=== PATIENT | female | born 1965 | race Hispanic/Latino ===

== ENCOUNTER 2025-06-21 08:26 | Inpatient (IN) | payer BC ==
[~2025-06-21] VITALS: Ht 152.4 cm; Wt 30.4 kg
[2025-06-21] MEDS: 0.9%NACL 1000ML 1,000 ML IV ONE (08:59)
[2025-06-21 09:02] LABS: IMMATURE GRANULOCYTE ABSOLUTE 0.01 K/uL (0-1); NUCLEATED RED BLOOD CELLS 0.0 % (0.0-0.19); PLATELET COUNT (AUTO) 227 K/uL (130-400); RED BLOOD CELL COUNT(AUTO) 3.47 MIL/uL (4.00-5.50); RED CELL DISTRIBUTION WIDTH 17.2 % (11.0-15.5); WHITE BLOOD COUNT (AUTO) 3.0 K/uL (4.8-10.8)
--- NOTE | 2025-06-21 09:14 | ERN ---
General Chief Complaint: Multiple Complaints Stated Complaint: MULTIPLE COMPLAINTS Time Seen by MD: 08:35 Source: patient History of Present Illness Initial Comments Patient is a an 59-year-old female coming in complaining of generalized body weakness nauseousness and vomiting. Per patient this has been ongoing for a couple of days. She was diagnosed with cancer stage IV. Allergies: Coded Allergies: No Known Allergies (Unverified Allergy, Unknown, 06/21/25) Past Medical History Past Medical History: Cancer Past Surgical History: None ROS Dictation Patient is a 59-year-old female coming in complaining of nauseousness and Results Laboratory and Microbiology Lab and Micro Result Laboratory Tests Test 06/21/25 08:50 White Blood Count 3.0 K/uL (4.8-10.8) L Red Blood Count 3.47 MIL/uL (4.00-5.50) L Hemoglobin 11.2 g/dL (12.0-16.0) L Hematocrit 35.5 % (36-48) L Mean Corpuscular Volume 102.3 fL (79-99) H Mean Corpuscular Hemoglobin 32.3 pg (27.0-33.0) Mean Corpuscular Hemoglobin Concent 31.5 g/dL (32.0-36.0) L Red Cell Distribution Width 17.2 % (11.0-15.5) H Platelet Count 227 K/uL (130-400) Mean Platelet Volume 9.9 fL (7.5-10.5) Immature Granulocyte % (Auto) 0.3 % (0-1) Neutrophils (%) (Auto) 77.3 % (40.0-77.0) H Lymphocytes (%) (Auto) 15.5 % (21.0-51.0) L Monocytes (%) (Auto) 6.9 % (3.0-13.0) Eosinophils (%) (Auto) 0.0 % (0.0-8.0) Basophils (%) (Auto) 0.0 % (0.0-5.0) Neutrophils # (Auto) 2.3 K/uL (1.8-7.7) Lymphocytes # (Auto) 0.5 K/uL (1.0-4.8) L Monocytes # (Auto) 0.2 K/uL (0.1-1.0) Eosinophils # (Auto) 0.00 K/uL (0.00-0.70) Basophils # (Auto) 0.00 K/uL (0.00-0.20) Absolute Immature Granulocyte (auto 0.01 K/uL (0-1) Segmented Neutrophils % 82 % (40-70) H Band Neutrophils % 3 % (0-2) H Lymphocytes % (Manual) 12 % (22-44) L Monocytes % (Manual) 3 % (2-9) Nucleated Red Blood Cells 0.0 % (0.0-0.19) Differential Comment MANUAL DIFFERENTIAL White Cell Morphology Comment Platelet Morphology Comment ADEQUATE Red Blood Cell Morphology See comments Sodium Level 143 mmol/L (136-145) Potassium Level 3.9 mmol/L (3.5-5.1) Chloride Level 99 mmol/L (101-111) L Carbon Dioxide Level 30 mmol/L (21-32) Blood Urea Nitrogen 44 mg/dL (7-18) H Creatinine 0.9 mg/dL (0.5-1.0) Glomerular Filtration Rate Calc 74 mL/min (>90) Random Glucose 100 mg/dL (70-105) Total Calcium 9.7 mg/dL (8.5-10.1) Total Bilirubin 1.6 mg/dL (0.2-1.0) H Aspartate Amino Transf (AST/SGOT) 36 U/L (10-37) Alanine Aminotransferase (ALT/SGPT) 28 U/L (12-78) Alkaline Phosphatase 132 U/L (50-136) Total Creatine Kinase 46 U/L (21-232) Troponin I High Sensitivity 83 ng/L (4-50) *H Total Protein 6.2 g/dL (6.0-8.3) Albumin 2.3 g/dL (3.5-5.0) L Lipase 16 U/L (16-77) Labs Reviewed?: Yes EKG/XRAY/US/CT/MRI EKG Comment 06/21/2025 time 8:53 a.m. Ventricular rate 101 Sinus tachycardia [place] [address] wave elevation or depression MDM MDM: Differential diagnosis: ACS, GI bleed, Rationale: Tests considered and ordered secondary to shared decision making include: Previous outside records reviewed: Old ER visits. Risk of complication and/or morbidity or mortality of patient management: None Medications-Per medication reconciliation Need for hospitalization: Patient does not meet criteria for hospitalization. Need for emergency major/minor surgery: No There are no social concerns with this patient. Prescription drug management Prescriptions will include symptomatic care Patient's prior external medical records from other ER visits were reviewed by me as indicated. Prior testing and results from previous visits were reviewed. Prior tests were taken into account with medical decision making and resource utilization, independent historian/historians were used to obtain complete medical history. I independently interpreted the test that were performed, results were reviewed by me and considered findings on radiology if ordered. Medical management and examination interpretation discussions were had by me with other qualified healthcare professionals as indicated for the patient's care. ED Course Orders Procedure Category Date Status Time Cbc With Differential LAB 06/21/25 Complete 08:35 Comprehensive LAB 06/21/25 Complete Metabolic Panel 08:35 Troponin I High LAB 06/21/25 Complete Sensitivity 08:35 Urinalysis Profile LAB 06/21/25 In Process 08:35 Occult Blood Stool LAB 06/21/25 In Process Single Only 08:35 12 Lead Ekg Tracing- EKG 06/21/25 Logged Technical 08:35 0.9%Nacl 1000ml (Ns PHA 06/21/25 Complete 1000ml) 09:00 Ondansetron 4mg Inj PHA 06/21/25 Complete (Zofran 4mg Inj) 09:00 Pantoprazole 40mg Inj PHA 06/21/25 Complete (Protonix 40mg Inj 09:00 Creatine Kinase, Total LAB 06/21/25 Complete 08:35 Ct Abdomen/Pelvis W/O CT 06/21/25 Taken Contrast 08:35 Lipase LAB 06/21/25 Complete 08:35 Manual Differential LAB 06/21/25 Complete 08:50 Ondansetron 4mg Inj PHA 06/21/25 Complete (Zofran 4mg Inj) 10:00 Current Medications Medications (Trade) Dose Ordered Sig/Janice Route PRN Reason Start Time Stop Time Status Last Admin Dose Admin Ondansetron HCl (zoFRAN 4MG INJ) 4 mg ONCE ONCE IVP 06/21/25 09:00 06/21/25 09:01 DC 06/21/25 08:59 Ondansetron HCl (zoFRAN 4MG INJ) 4 mg ONCE ONCE IVP 06/21/25 10:00 06/21/25 10:01 DC 06/21/25 09:48 Pantoprazole Sodium (PROTonix 40MG INJ) 40 mg ONCE ONCE IVP 06/21/25 09:00 06/21/25 09:01 DC 06/21/25 08:59 Sodium Chloride 1,000 ml @ 0 mls/hr ONCE ONCE IV 06/21/25 09:00 06/21/25 09:01 DC 06/21/25 08:59 Vital Signs Date Time Temp Pulse Resp B/P (MAP) Pulse Ox O2 Delivery O2 Flow Rate FiO2 06/21/25 09:17 88 18 122/58 98 Room Air* 0 21 06/21/25 08:34 97.2 102 18 109/75 100 Room Air 0 Critical Care Note Comments Critical Care Procedure Note Authorized and Performed by: me Total critical care time: Approximately 36 minutes Due to a high probability of clinically significant, life threatening deterioration, the patient required my highest level of preparedness to intervene emergently and I personally spent this critical care time directly and personally managing the patient. This critical care time included obtaining a history; examining the patient; pulse oximetry; ordering and review of studies; arranging urgent treatment with development of a management plan; evaluation of patient's response to treatment; frequent reassessment; and, discussions with other providers. This critical care time was performed to assess and manage the high probability of imminent, life-threatening deterioration that could result in multi-organ failure. It was exclusive of separately billable procedures and treating other patients and teaching time. Please see MDM section and the rest of the note for further information on patient assessment and treatment. DX & DISP Disposition: Inpatient Decision to Admit Time: 10:35 Departure Impression: Primary Impression: ACS (acute coronary syndrome) Additional Impressions: GI bleed, Ovarian cancer Condition: Stable Referrals: SELF,REFERRAL (PCP) ALONDRA GREWAL MD Jun 21, 2025 09:14
[2025-06-21 10:07] LABS: BAND NEUTROPHILS % (MANUAL) 3 % (0-2); LYMPHOCYTES % (MANUAL) 12 % (22-44); MONOCYTES % (MANUAL) 3 % (2-9); SEGMENTED NEUTROPHILS % 82 % (40-70)
[2025-06-21 10:08] LABS: MAN.DIFF COMMENT-IMPRESSION MANUAL DIFFERENTIAL; PLATELET MORPHOLOGY COMMENT ADEQUATE
[2025-06-21 10:14] LABS: CREATININE 0.9 mg/dL (0.5-1.0); GLOMERULAR FILTR. RATE CALC 74.0 mL/min (>90); GLUCOSE,RANDOM 100.0 mg/dL (70-105); SODIUM SERUM 143.0 mmol/L (136-145); UREA NITROGEN, BLOOD 44.0 mg/dL (7-18)
[2025-06-21 10:18] LABS: ASPARTATE AMINOTRANSFERASE 36.0 U/L (10-37); CREATINE KINASE, TOTAL 46.0 U/L (21-232); TOTAL PROTEIN, SERUM 6.2 g/dL (6.0-8.3)
[2025-06-21 10:24] LABS: APPEARANCE,URINE CLOUDY (CLEAR); GLUCOSE, URINE (UA) NEGATIVE (NEGATIVE); LEUKOCYTE ESTERASE ,URINE 75 Leu/uL (NEGATIVE); NITRATE,URINE NEGATIVE (NEGATIVE); OCCULT BLOOD,URINE +- (TRACE) (NEGATIVE)
[2025-06-21 10:36] LABS: ADD UA MICROSCOPIC YES
[2025-06-21 10:40] LABS: CALCIUM OXALATE CRYSTALS,UR RARE /LPF (None Seen); NON-SQUAMOUS EPITHELIAL CELL 1 /HPF (0-2); OTHER CASTS, URINE 3 /LPF (None Seen); SQUAMOUS EPITHELIAL CELL,UR RARE /HPF (0-2)
--- NOTE | 2025-06-21 10:42 | HMCIMG ---
EXAM: CT Abdomen and Pelvis Without IV contrast CLINICAL HISTORY: ABD PAIN TECHNIQUE: Axial computed tomography images of the abdomen and pelvis without intravenous contrast. CONTRAST: No IV contrast. COMPARISON: None provided. FINDINGS: LUNG BASES: Large left and right moderate pleural effusion with associated passive atelectasis. Few tiny right oblique fissural nodules. LIVER: Hypodense lesion in segment II of the liver measuring 13 x 8 mm, which can be a simple cyst. USG correlation is suggested if indicated. GALLBLADDER AND BILE DUCTS: The gallbladder appears within normal limits. No radioopaque gallstones are seen. No biliary ductal dilatation is evident. PANCREAS: Unremarkable. SPLEEN: Unremarkable. ADRENAL GLANDS: Unremarkable. KIDNEYS, URETERS, AND BLADDER: The kidneys appear within normal limits. There is no hydronephrosis or hydroureter. No urinary calculi are seen. STOMACH AND BOWEL: Unremarkable appearance of the stomach and bowel. No evidence of bowel obstruction. No evidence suggesting enteritis or colitis. APPENDIX: No evidence of acute appendicitis on CT examination. PERITONEUM: Large volume ascites. No free air. Omental caking with a maximum thickness of 3 cm. LYMPH NODES: No lymphadenopathy is evident. REPRODUCTIVE: Heterogeneous lesions in bilateral adnexal regions measuring 3.7 x 3.4 cm on the left side and 3.4 x 3.3 cm on the right side. VASCULATURE: No evidence of abdominal aortic aneurysm. BONES AND SOFT TISSUE: No aggressive appearing osseous lesion. No acute osseous pathology evident. Eventration of left hemidiaphragm. IMPRESSION: Study limited without contrast. Large volume ascites with omental caking, suggesting peritoneal carcinomatosis. Bilateral adnexal masses, measuring up to 3.7 cm. Large left and moderate right pleural effusion with associated passive atelectasis. /[place]
--- NOTE | 2025-06-21 12:49 | EKG ---
[facility] Test Date: 2025-06-21 Test Time: 08:53:46 Pat Name: JUNI REID Department: EDH Room: 405 Gender: F Packing Checker: [id number] : [id number] Requested By: ALONDRA GREWAL Order Number: [id number] Reading MD: Mera Jackson Measurements Intervals [place] Rate: 101 P: 56 [place]: 147 QRS: 33 QRSD: 55 T: -58 QT: 334 QTc: 434 Interpretive Statements Sinus tachycardia Low voltage, extremity leads Nonspecific T abnormalities, lateral leads No previous ECG available for comparison Electronically Signed On 06-22-2025 12:36:12 CDT by Mera Jackson Please click the below link to view image of tracing.
[2025-06-21] MEDS ORDERED: MAGNESIUM 2GM PREMIX 50ML 50 ML IV PRN (13:00)
[2025-06-21] MEDS ORDERED: PoTASSium chloRIDE 20MEQ ER 20 MEQ ERTAB PO PRN (13:00)
[2025-06-21] MEDS ORDERED: GLUCAGON 1MG KIT 1 MG ML IM PRN (13:00)
[2025-06-21] MEDS ORDERED: DEXTROSE 50%-WATER 50 ML DISP.SYRIN IV PRN (13:00)
--- NOTE | 2025-06-21 13:23 | HP ---
[facility] HISTORY AND PHYSICAL Date of Service: Jun 21, 2025 Time of Service: 13:13 PCP:Dr Giang Admitting: Dr Giang, Allergies: No Allergy Information Available, No Known Drug Allergies HISTORY OF PRESENT ILLNESS: [ Patient is 59 years old female with a past medical history of per ovarian cancer stage IV, peritoneal carcinoma, ascites, pleural effusions on hospice from home who came to emergency department with a complaint of shortness of breaths [place], nausea, vomiting with some dark emesis. During evaluation patient's troponin has been elevated at 83. Occult blood was negative. No more nausea or vomiting. Nurse practitioner was able to talk to the patient and her at the bedside regarding the hospice continuation. As per patient and they understand that no scopes probably she will be able to survive so they would only like to proceed with shortness of breaths. CT abdomen/pelvis showed large ascites with omental caking peritoneal carcinoma, bilateral adrenal masses and large to moderate left pleural effusion. We will consult IR for paracentesis and thoracentesis and possibly placement of the pigtail since patient would like to go home tomorrow after the fluid removal. They denied to consult any consultants like GI for dark emesis or oncologist Dr. Samson outpatient for cancer since they know they not going to proceed with anything and they are not candidate for any treatment. Patient's urine was positive for leukocytosis we ordered urine culture and place patient on Rocephin 2 g daily. Most recent vital signs temperature 97.2 pulse 84 respiration 18 blood pressure 128/82 patient is on room air satting 97%. WBC 3.0 hemoglobin 11.2 hematocrit 35.5 platelets 227 UA positive for leukocytosis. Stool occult negative. Sodium 143 potassium 3.9 CO2 30 BUN 44 creatinine 0.9 GFR 74 glucose 100 bilirubin 1.6 AST 36 ALT 28 troponin 83 albumin 2.3 lipase 16. Patient will be admitted under hospitalist care for further evaluation/recommendation. The plan is IR paracentesis and thoracentesis with possible PEG tube placement and then discharged home with hospice. Case management was consulted to pelvis with disposition. REVIEW OF SYSTEMS CONSTITUTIONAL: Denies fevers, chills, or night sweats. No unintentional weight loss reported. NEUROLOGICAL: Denies headache, amaurosis fugax, motor weakness, sensory d eficit, vertigo/spinning sensation, gait abnormalities, or tremors. ENT: No hearing loss, otalgia, otorrhea, rhinitis, rhinorrhea, hoarseness, or sore throat. CARDIOVASCULAR: Denies any exertional angina, dyspnea on exertion, orthopnea, paroxysmal nocturnal dyspnea, palpitations, life-threatening arrhythmias, claudication. PULMONARY: Denies any , cough, phlegm/sputum, hemoptysis, pleuritic chest pain. Complains of shortness of breaths SLEEP: Denies morning headaches, daytime somnolence or napping. Denies difficulty falling asleep, staying asleep, waking from sleep. Denies knowledge of snoring. GASTROINTESTINAL: Denies any type of dysphagia to either liquids or solids. Denies pyrosis, early satiety, abdominal pain, diarrhea, constipation, or changes in stool consistency or caliber. Denies coffee-ground emesis, hematemesis, hematochezia, or melanotic stools. Complains of nausea and vomiting with dark content GENITOURINARY: Denies frequency, urgency, nocturia, hematuria or incontinence (Storage/Irritative symptoms.) Low urinary stream, straining to void, urinary intermittency or hesitancy, splitting of the voiding stream, terminal dribbling. ENDOCRINOLOGIC: Denies polyuria, polydipsia, polyphagia or heat/cold intolerances. HEMATOLOGIC: Denies thrombophilia/previous clots, or coagulopathy/bleeding disorders. ONCOLOGIC: Denies personal history of malignancy. DERMATOLOGIC: Denies rashes or pruritus. PSYCHIATRIC: Denies any suicidal or homicidal ideation. Denies hallucinations. PAST MEDICAL HISTORY: [ Ovarian cancer, peritoneal cancer, adrenal masses, pleural effusions, ascites , on hospice at home] PAST SURGICAL HISTORY: [Denies any ] PAST SOCIAL HISTORY: [ Drinking alcohol. Patient denies any drug illicit. Patient denies smoking] FAMILY HISTORY: [ Patient lives at home with the ] Coded Allergies: No Known Allergies (Unverified Allergy, Unknown, 06/21/25) PHYSICAL EXAM GENERAL APPEARANCE: The patient is awake, alert, and oriented, in no acute cardiopulmonary distress. NEUROLOGICAL: Cranial nerves II-XII grossly intact. Motor is 5/5 in bilateral upper and lower extremities proximal to distal. No sensory deficits. HEENT: Face is symmetric. Pupils are equal and reactive. Extraocular movements are intact. NECK: Supple. No JVD. No thyromegaly. No submental, submandibular, pre- /postauricular, occipital or supraclavicular lymphadenopathy. CHEST: Normal chest expansion. No Telemetry. LUNGS: Absence of any rales, rhonchi or any wheezing. CARDIOVASCULAR: Regular. S1 and S2 normal. No appreciable rubs, murmurs or gallops. ABDOMEN: Soft, nontender, and nondistended. There is no rebound, voluntary guarding, or rigidity. : Deferred. No [place]. EXTREMITIES: Non-edematous and not cyanotic. No clubbing. Good capillary refill. SKIN: No skin breakdown. Vital Sign (Last 24 Hours) 06/21/25 06/21/25 08:34 12:02 Temp 97.2 Pulse 84 Resp 18 B/P (MAP) 128/82 Pulse Ox 97 O2 Delivery Room Air* O2 Flow Rate 0 FiO2 21 LABS: Laboratory: Test 06/21/25 10:16 06/21/25 08:50 Range/Units Urine Color YELLOW YELLOW Urine Appearance CLOUDY H CLEAR Urine pH 6.0 5.0-8.0 Urine Specific [place] 1.016 1.001-1.031 Urine Protein 20 H NEGATIVE mg/dL Urine Glucose (UA) NEGATIVE NEGATIVE mg/dL Urine Ketones 5 H NEGATIVE mg/dL Urine Occult Blood +- (TRACE) H NEGATIVE Urine Nitrate NEGATIVE NEGATIVE Urine Bilirubin 0.5 H NEGATIVE mg/dL Urine Urobilinogen 3 H 0.2-1.0 mg/dL Urine Leukocyte Esterase 75 H NEGATIVE Jose/uL Urine RBC 6-10 H 0-1 /HPF Urine WBC 11-25 H 0-1 /HPF Urine Squamous Epithelial Cells RARE 0-2 /HPF Urine Non-Squamous Epithelial Cells 1 0-2 /HPF Urine Calcium Oxalate Crystals RARE None Seen /LPF Urine Bacteria RARE None Seen /HPF Urine Hyaline Casts 6-10 H 0-1 /LPF /LPF Urine Other Casts 3 None Seen /LPF Stool Occult Blood NEGATIVE NEGATIVE White Blood Count 3.0 L 4.8-10.8 K/uL Red Blood Count 3.47 L 4.00-5.50 MIL/uL Hemoglobin 11.2 L 12.0-16.0 g/dL Hematocrit 35.5 L 36-48 % Mean Corpuscular Volume 102.3 H 79-99 fL Mean Corpuscular Hemoglobin 32.3 27.0-33.0 pg Mean Corpuscular Hemoglobin Concent 31.5 L 32.0-36.0 g/dL Red Cell Distribution Width 17.2 H 11.0-15.5 % Platelet Count 227 130-400 K/uL Mean Platelet Volume 9.9 7.5-10.5 fL Immature Granulocyte % (Auto) 0.3 0-1 % Neutrophils (%) (Auto) 77.3 H 40.0-77.0 % Lymphocytes (%) (Auto) 15.5 L 21.0-51.0 % Monocytes (%) (Auto) 6.9 3.0-13.0 % Eosinophils (%) (Auto) 0.0 0.0-8.0 % Basophils (%) (Auto) 0.0 0.0-5.0 % Neutrophils # (Auto) 2.3 1.8-7.7 K/uL Lymphocytes # (Auto) 0.5 L 1.0-4.8 K/uL Monocytes # (Auto) 0.2 0.1-1.0 K/uL Eosinophils # (Auto) 0.00 0.00-0.70 K/uL Basophils # (Auto) 0.00 0.00-0.20 K/uL Absolute Immature Granulocyte (auto 0.01 0-1 K/uL Segmented Neutrophils % 82 H 40-70 % Band Neutrophils % 3 H 0-2 % Lymphocytes % (Manual) 12 L 22-44 % Monocytes % (Manual) 3 2-9 % Nucleated Red Blood Cells 0.0 0.0-0.19 % Differential Comment MANUAL DIFFERENTIAL White Cell Morphology Comment Platelet Morphology Comment ADEQUATE Red Blood Cell Morphology See comments Sodium Level 143 136-145 mmol/L Potassium Level 3.9 3.5-5.1 mmol/L Chloride Level 99 L 101-111 mmol/L Carbon Dioxide Level 30 21-32 mmol/L Blood Urea Nitrogen 44 H 7-18 mg/dL Creatinine 0.9 0.5-1.0 mg/dL Glomerular Filtration Rate Calc 74 >90 mL/min Random Glucose 100 70-105 mg/dL Total Calcium 9.7 8.5-10.1 mg/dL Total Bilirubin 1.6 H 0.2-1.0 mg/dL Aspartate Amino Transf (AST/SGOT) 36 10-37 U/L Alanine Aminotransferase (ALT/SGPT) 28 12-78 U/L Alkaline Phosphatase 132 50-136 U/L Total Creatine Kinase 46 21-232 U/L Troponin I High Sensitivity 83 *H 4-50 ng/L Total Protein 6.2 6.0-8.3 g/dL Albumin 2.3 L 3.5-5.0 g/dL Lipase 16 16-77 U/L Current Medications Medications (Trade) Dose Ordered Sig/Janice Route PRN Reason Start Time Stop Time Status Last Admin Dose Admin Acetaminophen (TYLenol 325MG TAB) 650 mg Q4H PRN PO MILD PAIN (1-3) 06/21/25 13:30 07/21/25 13:29 Acetaminophen (TYLenol 325MG TAB) 650 mg Q6H PRN PO TEMPERATURE GREATER THAN 101.5 06/21/25 13:30 07/21/25 13:29 Acetaminophen (TYLenol 325MG TAB) 650 mg Q6H PRN PO MILD PAIN (1-3) 06/21/25 13:30 07/21/25 13:29 UNV Al Hydroxide/Mg Hydroxide (MAALox PLUS 30ML) 30 ml Q6H PRN PO INDIGESTION 06/21/25 13:30 07/21/25 13:29 Albuterol Sulfate (Proventil 0.083% 2.5mg/3ml) 2.5 mg [id number] PRN IH RESPIRATORY SYMPTOMS 06/21/25 13:30 07/21/25 13:29 Ceftriaxone Sodium 2 gm/ Sodium Chloride 100 ml @ 200 mls/hr Q24H IV 06/21/25 13:30 07/01/25 13:29 UNV Dextrose (D50w) 50 ml AD PRN IV HYPOGLYCEMIA PROTOCOL 06/21/25 13:00 07/21/25 12:59 Diphenhydramine HCl (BENAdryl INJ) 25 mg Q6H PRN IV SEVERE ITCHING/RASH 06/21/25 13:30 07/21/25 13:29 Famotidine (Pepcid 20mg Vial) 20 mg BID IV 06/21/25 21:00 07/21/25 20:59 Famotidine (Pepcid 20mg Vial) 20 mg BID PRN IV NAUSEA/VOMITING 06/21/25 13:30 07/21/25 13:29 UNV Glucagon (Glucagon 1mg Kit) 1 mg AD PRN IM HYPOGLYCEMIA PROTOCOL 06/21/25 13:00 07/21/25 12:59 Guaifenesin/ Dextromethorphan (RobiTUSSin DM 200/20MG 10ML) 10 ml Q4H PRN PO COUGH 06/21/25 13:30 07/21/25 13:29 Heparin Sodium (Porcine) (HEParin 5,000 UNIT VIAL) 5,000 unit BID SQ 06/21/25 21:00 07/21/25 20:59 Hydralazine HCl (APRESOLine 20MG INJ) 10 mg Q6H PRN IV For:SBP above 160;DBP above 90 06/21/25 13:30 07/21/25 13:29 Insulin Human Regular (humuLIN R 100 UNIT/ML 3ML) INSULIN SLIDING SCAL... ACHS SQ 06/21/25 16:30 07/21/25 16:29 Ketorolac Tromethamine (toRADol) 15 mg Q8H PRN IV MODERATE PAIN (4-6) 06/21/25 13:30 06/26/25 13:29 Lactated Ringer's 1,000 ml @ 50 mls/hr Q20H IV 06/21/25 13:30 07/21/25 13:29 Lactulose (Constulose 20gm/ 30ml Udcup) 20 gm BID PRN PO CONSTIPATION 06/21/25 13:30 07/21/25 13:29 Magnesium Sulfate 50 ml @ 0 mls/hr PROTOCOL PRN IV other 06/21/25 13:00 07/21/25 12:59 Morphine Sulfate (morPHINE 2MG SYG) 1 mg Q4H PRN IVP SEVERE PAIN (7-10) 06/21/25 13:30 06/28/25 13:29 Nitroglycerin (Nitrostat) 0.4 mg PROTOCOL PRN SL CHEST PAIN 06/21/25 13:30 07/21/25 13:29 Ondansetron HCl (zoFRAN 4MG INJ) 4 mg Q6H PRN IV NAUSEA/VOMITING 06/21/25 13:30 07/21/25 13:29 Potassium Chloride 100 ml @ 100 mls/hr AD PRN IV POTASSIUM PROTOCOL 06/21/25 13:00 07/21/25 12:59 Potassium Chloride (K-Dur/Klor-Con 20meq) 20 meq AD PRN PO POTASSIUM PROTOCOL 06/21/25 13:00 07/21/25 12:59 Potassium Chloride (KCl 10% Elixir 20meq/15ml) 20 meq AD PRN PO POTASSIUM PROTOCOL 06/21/25 13:00 07/21/25 12:59 Zolpidem Tartrate (AmbIEN) 5 mg HS PRN PO INSOMNIA 06/21/25 13:30 07/21/25 13:29 DIAGNOSTICS / RADIOLOGY: [ ] ASSESSMENT: [ Acute hypoxic respiratory failure POA Large ascites as CT abdomen/pelvis POA Omental caking peritoneal carcinoma per CT abdomen/pelvis POA Ovarian cancer POA Bilateral adrenal masses per CT abdomen/pelvis POA Large to moderate pleural effusions per CT abdomen/pelvis POA Acute complicated cystitis POA Intractable nausea and vomiting POA Elevated troponin 83 POA Patient currently on hospice POA Multifactorial anemia POA ] PLAN: [ Admit patient to medical-surgical floor Urinalysis positive for leukocytosis Place patient on Rocephin 2 g daily LR at 50 mL per RN Heparin prophylaxis 5000 subQ b.i.d. Urine culture pending A.m. labs IR paracentesis IR thoracentesis IR for pigtail placement Case management consulted for home hospice Chest x-ray pending CT abdomen/pelvis showed large ascites with omental caking peritoneal carcinoma. Bilateral adrenal masses, large to moderate left pleural effusions Home medications to be reconciled once family will bring to the hospital ] ADVANCED CARE PLANNING 1. Which of the following were discussed? Hospice Care - Yes / No Therapeutic options - Yes / No Advance Directives - Yes / No Other discussions - 2. Discussed with who? Patient and at bedside 3. Voluntary nature of this service was explained to the patient? Yes / No 4. Amount of time spent - __ more than 35 minutes 5. Reviewed by Physician? (if this service was performed by NPP) Yes / No ATTESTATION BY PHYSICIAN I have seen and examined the patient. I reviewed the documentation, medical decision making, and treatment plan as noted by the mid-level provider above. I agree with the findings and plan of care. CONG GIANG MD, KATARZYNA B SURVEILLANCE SPECIALIST Jun 21, 2025 13:23
[2025-06-21] MEDS ORDERED: ALBUTEROL 0.083% 2.5 MG/3 ML INH IH PRN (13:30)
[2025-06-21] MEDS ORDERED: MAG/ALUM/SIMETH 30 ML UDCUP PO PRN (13:30)
[2025-06-21] MEDS ORDERED: LACTULOSE 20 GM/30 ML UDCUP PO PRN (13:30)
[2025-06-21] MEDS ORDERED: NITROGLYCERIN 0.4 MG SL TAB SL PRN (13:30)
[2025-06-21] MEDS ORDERED: FAMOTIDINE 20MG VIAL IV PRN (13:30)
[2025-06-21] MEDS ORDERED: guaiFENesin-DM 200/20MG 10ML PO PRN (13:30)
[2025-06-21] MEDS: LACTATED RINGERS 1000ML 1,000 ML IV SCH (13:58)
[2025-06-21 15:46] VITALS: PULSE 86; RESP 18; O2SAT 99
--- NOTE | 2025-06-21 16:27 | HMCIMG ---
EXAM: CR Chest, 1 View. CLINICAL HISTORY: congestion, pl effiusions COMPARISON: None provided. FINDINGS: Implantable port type catheter on the right with the tip in the SVC/right atrium junction area. LUNGS: There is no mass, infiltrate, or acute pulmonary abnormality. PLEURAL SPACES: Large left pleural effusion and moderate right pleural effusion. There are bibasilar areas of opacity, left greater than right. MEDIASTINUM: Cardiac size and mediastinal contours within normal limits. BONES: No acute osseous abnormality. IMPRESSION: Large left pleural effusion and small right pleural effusion. Bibasilar areas of airspace opacity, left greater than right. May represent pleural effusion, atelectasis, or acute infectious process. /[place]
[2025-06-21] MEDS ORDERED: APIX5TAB PO (17:31)
[2025-06-21] MEDS ORDERED: PANT40TA54 PO (17:32)
[2025-06-21 18:30] VITALS: BP 111/71; PULSE 83; RESP 15; TEMP 97.6
--- NOTE | 2025-06-21 18:30 | NUR ---
ARRIVAL TO UNIT Patient arrived to unit via bed. Accompanied by . DNR signed in ER. Alert and oriented to person and situation. Able to follow commands. Oriented to floor and to unit. Patient complain of pain with general movement and nausea. Per has had several episodes of emesis since arrival to emergency department. Will medicate with prn pain and antinausea medication and continue to monitor.
[2025-06-21 19:27] VITALS: PULSE 83; RESP 18; O2SAT 93
[2025-06-21 20:00] VITALS: BP 117/77; PULSE 94; RESP 18; TEMP 97.5; O2SAT 97
[2025-06-21] MEDS: FAMOTIDINE 20MG VIAL IV SCH (20:22)
--- NOTE | 2025-06-21 23:30 | NUR ---
spoke with patient and about paracentesis and thoracentesis planned for tomorrow. patient's concerned because he did not understand procedure well and what it was for. I explained to him and patient that MD ordered procedure will removed fluid causing patients shortness of breath. patient explained that she has no problem breathing at the moment. they told me that their md in [place] told them that a thoracentesis was not needed. requested to speak with provider in the morning before signing consent form. agreed. no signs of distress noted. patient is resting comfortably in bed with at bedside and bed is locked and low and call light is in reach.
[2025-06-22] VITALS (13 sets, daily range): BP systolic 108–141; BP diastolic 60–88; PULSE 70–95; RESP 17–20; TEMP 97.4–98.2; O2SAT 98–100
[2025-06-22 06:43] LABS: IMMATURE GRANULOCYTE ABSOLUTE 0.01 K/uL (0-1); NUCLEATED RED BLOOD CELLS 0.0 % (0.0-0.19); PLATELET COUNT (AUTO) 190 K/uL (130-400); RED BLOOD CELL COUNT(AUTO) 2.94 MIL/uL (4.00-5.50); RED CELL DISTRIBUTION WIDTH 17.7 % (11.0-15.5); WHITE BLOOD COUNT (AUTO) 3.0 K/uL (4.8-10.8)
[2025-06-22 07:04] LABS: ASPARTATE AMINOTRANSFERASE 26 U/L (10-37); CREATINE KINASE, TOTAL 28 U/L (21-232); CREATININE 0.8 mg/dL (0.5-1.0); GLOMERULAR FILTR. RATE CALC 85 mL/min (>90); GLUCOSE,RANDOM 80 mg/dL (70-105); SODIUM SERUM 142 mmol/L (136-145); TOTAL PROTEIN, SERUM 5.4 g/dL (6.0-8.3); UREA NITROGEN, BLOOD 40 mg/dL (7-18)
[2025-06-22 08:43] LABS: INR 1.0 (0.85-1.15)
--- NOTE | 2025-06-22 09:19 | NUR ---
Dcp; HOME WITH [facility] [phone] fax [phone] Sw present when Kaushal RAMIREZ spoke to and pt. Plan is to place pig tail or [place] cath and dcp back home with hospice. states pt was on services with [facility] for 1 week and brought pt in for shortness of breath. stated he attempted o reach [facility] recycling collections driver several times, no answer so he brought pt in. Sw spoke to Monkia at [facility] office, [place] cath is preferred by them. Sw notified Kaushal RAMIREZ of this. Pt and wish to return to [facility] services, consent signed. Clinicals faxed. Gonzalo made aware
--- NOTE | 2025-06-22 11:50 | NUR ---
ULTRASOUND GUIDED LEFT THORACENTESIS PROCEDURE PERFORMED BY DR. VILMA HOUSER. PUNCTURE SITE LEFT UPPER, POSTERIOR BACK AND PATIENT TOLERATED PROCEDURE WELL. TOTAL REMOVED 700 MILLITERS OF CLEAR, DARK YELLOW PLEURAL FLUID. END OF PROCEDURE AT 1130. CATHETER REMOVED AND PETROLEUM GAUZE DRESSING APPLIED- NO BLEEDING NOTED. POST CHEST X-RAY TAKEN AND READ BY DR. HOUSER. PNEUMOTHORAX SEEN ON LEFT SIDE. DR. HOUSER REPORTED TRAPPED LUNG. REPEAT CHEST X-RAY AT 1600. REPORT GIVEN TO TARYN VALLEJO RN AND PATIENT TRANSPORTED BACK TO ROOM 405 VIA BED. PATIENT IS ALERT AND ORIENTED WITH NO C/O PAIN.
--- NOTE | 2025-06-22 13:17 | PN ---
[facility] PROGRESS NOTE Date of Service: Jun 22, 2025 Time of Service: 13:[address] Palmer SUBJECTIVE: [06/21 Patient is 59 years old female with a past medical history of per ovarian cancer stage IV, peritoneal carcinoma, ascites, pleural effusions on hospice from home who came to emergency department with a complaint of shortness of breaths Gus, nausea, vomiting with some dark emesis. During evaluation patient's troponin has been elevated at 83. Occult blood was negative. No more nausea or vomiting. Nurse practitioner was able to talk to the patient and her at the bedside regarding the hospice continuation. As per patient and they understand that no scopes probably she will be able to survive so they would only like to proceed with shortness of breaths. CT abdomen/pelvis showed large ascites with omental caking peritoneal carcinoma, bilateral adrenal masses and large to moderate left pleural effusion. We will consult IR for paracentesis and thoracentesis and possibly placement of the pigtail since patient would like to go home tomorrow after the fluid removal. They denied to consult any consultants like GI for dark emesis or oncologist Dr. Samson outpatient for cancer since they know they not going to proceed with anything and they are not candidate for any treatment. Patient's urine was positive for leukocytosis we ordered urine culture and place patient on Rocephin 2 g daily. Most recent vital signs temperature 97.2 pulse 84 respiration 18 blood pressure 128/82 patient is on room air satting 97%. WBC 3.0 hemoglobin 11.2 hematocrit 35.5 platelets 227 UA positive for leukocytosis. Stool occult negative. Sodium 143 potassium 3.9 CO2 30 BUN 44 creatinine 0.9 GFR 74 glucose 100 bilirubin 1.6 AST 36 ALT 28 troponin 83 albumin 2.3 lipase 16. Patient will be admitted under hospitalist care for further evaluation/recommendation. The plan is IR paracentesis and thoracentesis with possible PEG tube placement and then discharged home with hospice. Case management was consulted to pelvis with disposition. 06/22 patient was seen by nurse practitioner and physician during rounding in room 405. Care works explained to the patient and family members/ at the bedside. Patient underwent IR thoracentesis left lung and 600 mL of fluids was removed. Nurse practitioner was also able to talk to the IR tech regards a possibly removing fluids from the left lung which will be set up for tomorrow morning. Patient will undergo paracentesis today in cardiac cath lab radiology technologist and placement of Hill catheter for ascites. Afterwards patient will be discharged home with hospice. Continue to monitor patient in the meantime. A.m. labs ] REVIEW OF SYSTEMS CONSTITUTIONAL: Denies fevers, chills, or night sweats. No unintentional weight loss reported. NEUROLOGICAL: Denies headache, amaurosis fugax, motor weakness, sensory deficit , vertigo/spinning sensation, gait abnormalities, or tremors. ENT: No hearing loss, otalgia, otorrhea, rhinitis, rhinorrhea, hoarseness, or sore throat. CARDIOVASCULAR: Denies any exertional angina, dyspnea on exertion, orthopnea, paroxysmal nocturnal dyspnea, palpitations, life-threatening arrhythmias, claudication. PULMONARY: Denies any , cough, phlegm/sputum, hemoptysis, pleuritic chest pain. Complains of shortness of breaths, which has improved compared to the previous day SLEEP: Denies morning headaches, daytime somnolence or napping. Denies difficulty falling asleep, staying asleep, waking from sleep. Denies knowledge of snoring. GASTROINTESTINAL: Denies any type of dysphagia to either liquids or solids. Denies pyrosis, early satiety, abdominal pain, diarrhea, constipation, or changes in stool consistency or caliber. Denies coffee-ground emesis, hematemesi s, hematochezia, or melanotic stools. Nine seven nausea and vomiting with dark content GENITOURINARY: Denies frequency, urgency, nocturia, hematuria or incontinence (Storage/Irritative symptoms.) Low urinary stream, straining to void, urinary intermittency or hesitancy, splitting of the voiding stream, terminal dribbling. ENDOCRINOLOGIC: Denies polyuria, polydipsia, polyphagia or heat/cold intolerances. HEMATOLOGIC: Denies thrombophilia/previous clots, or coagulopathy/bleeding disorders. ONCOLOGIC: Denies personal history of malignancy. DERMATOLOGIC: Denies rashes or pruritus. PSYCHIATRIC: Denies any suicidal or homicidal ideation. Denies hallucinations. PHYSICAL EXAM GENERAL APPEARANCE: The patient is awake, alert, and oriented, in no acute cardiopulmonary distress. NEUROLOGICAL: Cranial nerves II-XII grossly intact. Motor is 5/5 in bilateral upper and lower extremities proximal to distal. No sensory deficits. HEENT: Face is symmetric. Pupils are equal and reactive. Extraocular movements are intact. NECK: Supple. No JVD. No thyromegaly. No submental, submandibular, pre- /postauricular, occipital or supraclavicular lymphadenopathy. CHEST: Normal chest expansion. No Telemetry. LUNGS: Absence of any rales, rhonchi or any wheezing. CARDIOVASCULAR: Regular. S1 and S2 normal. No appreciable rubs, murmurs or gallops. ABDOMEN: Soft, nontender, and nondistended. There is no rebound, voluntary guarding, or rigidity. : Deferred. No Carlin. EXTREMITIES: Non-edematous and not cyanotic. No clubbing. Good capillary refill. SKIN: No skin breakdown. Vital Signs (last 8hr) Date Time Temp Pulse Resp B/P (MAP) Pulse Ox O2 Delivery O2 Flow Rate FiO2 06/22/25 08:30 70 18 N/A Room Air 21 06/22/25 08:00 98.2 94 17 108/76 97 Room Air LABS: Laboratory: Test 06/22/25 12:57 06/22/25 08:12 06/22/25 06:32 06/21/25 10:16 Range/Units Whole Blood Glucose 77 70-110 MG/DL Prothrombin Time 10.6 9.6-11.6 SEC Prothromb Time International Ratio 1.00 0.85-1.15 Activated Partial Thromboplast Time 24.6 L 26.3-35.5 SEC White Blood Count 3.0 L 4.8-10.8 K/uL Red Blood Count 2.94 L 4.00-5.50 MIL/uL Hemoglobin 9.7 L 12.0-16.0 g/dL Hematocrit 30.3 L 36-48 % Mean Corpuscular Volume 103.1 H 79-99 fL Mean Corpuscular Hemoglobin 33.0 27.0-33.0 pg Mean Corpuscular Hemoglobin Concent 32.0 32.0-36.0 g/dL Red Cell Distribution Width 17.7 H 11.0-15.5 % Platelet Count 190 130-400 K/uL Mean Platelet Volume 9.5 7.5-10.5 fL Immature Granulocyte % (Auto) 0.3 0-1 % Neutrophils (%) (Auto) 71.3 40.0-77.0 % Lymphocytes (%) (Auto) 21.3 21.0-51.0 % Monocytes (%) (Auto) 7.1 3.0-13.0 % Eosinophils (%) (Auto) 0.0 0.0-8.0 % Basophils (%) (Auto) 0.0 0.0-5.0 % Neutrophils # (Auto) 2.1 1.8-7.7 K/uL Lymphocytes # (Auto) 0.6 L 1.0-4.8 K/uL Monocytes # (Auto) 0.2 0.1-1.0 K/uL Eosinophils # (Auto) 0.00 0.00-0.70 K/uL Basophils # (Auto) 0.00 0.00-0.20 K/uL Absolute Immature Granulocyte (auto 0.01 0-1 K/uL Nucleated Red Blood Cells 0.0 0.0-0.19 % Sodium Level 142 136-145 mmol/L Potassium Level 3.4 L 3.5-5.1 mmol/L Chloride Level 102 101-111 mmol/L Carbon Dioxide Level 31 21-32 mmol/L Blood Urea Nitrogen 40 H 7-18 mg/dL Creatinine 0.8 0.5-1.0 mg/dL Glomerular Filtration Rate Calc 85 >90 mL/min Random Glucose 80 70-105 mg/dL Lactic Acid Level 2.0 0.8-2.5 mmol/L Total Calcium 8.9 8.5-10.1 mg/dL Magnesium Level 2.00 1.80-2.40 mg/dL Total Bilirubin 0.9 # 0.2-1.0 mg/dL Direct Bilirubin 0.5 H 0.0-0.3 mg/dL Aspartate Amino Transf (AST/SGOT) 26 10-37 U/L Alanine Aminotransferase (ALT/SGPT) 22 # 12-78 U/L Alkaline Phosphatase 113 50-136 U/L Ammonia < 10 L 11-32 umol/L Total Creatine Kinase 28 # 21-232 U/L Troponin I High Sensitivity 70.0 *H 4-50 ng/L B-Type Natriuretic Peptide 119 H 0-100 pg/mL Total Protein 5.4 L 6.0-8.3 g/dL Albumin 2.0 L 3.5-5.0 g/dL Amylase Level 19 L 25-115 U/L Lipase 14 L 16-77 U/L Procalcitonin < 0.05 L 0.05-0.5 ng/mL Urine Color YELLOW YELLOW Urine Appearance CLOUDY H CLEAR Urine pH 6.0 5.0-8.0 Urine Specific [place] 1.016 1.001-1.031 Urine Protein 20 H NEGATIVE mg/dL Urine Glucose (UA) NEGATIVE NEGATIVE mg/dL Urine Ketones 5 H NEGATIVE mg/dL Urine Occult Blood +- (TRACE) H NEGATIVE Urine Nitrate NEGATIVE NEGATIVE Urine Bilirubin 0.5 H NEGATIVE mg/dL Urine Urobilinogen 3 H 0.2-1.0 mg/dL Urine Leukocyte Esterase 75 H NEGATIVE Jose/uL Urine RBC 6-10 H 0-1 /HPF Urine WBC 11-25 H 0-1 /HPF Urine Squamous Epithelial Cells RARE 0-2 /HPF Urine Non-Squamous Epithelial Cells 1 0-2 /HPF Urine Calcium Oxalate Crystals RARE None Seen /LPF Urine Bacteria RARE None Seen /HPF Urine Hyaline Casts 6-10 H 0-1 /LPF /LPF Urine Other Casts 3 None Seen /LPF Stool Occult Blood NEGATIVE NEGATIVE Test 06/21/25 08:50 Range/Units Segmented Neutrophils % 82 H 40-70 % Band Neutrophils % 3 H 0-2 % Lymphocytes % (Manual) 12 L 22-44 % Monocytes % (Manual) 3 2-9 % Differential Comment MANUAL DIFFERENTIAL White Cell Morphology Comment Platelet Morphology Comment ADEQUATE Red Blood Cell Morphology See comments Hemoglobin A1c 4.3 4.0-6.0 % Estimated Average Glucose (eAG) 77 70-126 mg/dL Current Medications Medications (Trade) Dose Ordered Sig/Janice Route PRN Reason Start Time Stop Time Status Last Admin Dose Admin Acetaminophen (TYLenol 325MG TAB) 650 mg Q4H PRN PO MILD PAIN (1-3) 06/21/25 13:30 07/21/25 13:29 Acetaminophen (TYLenol 325MG TAB) 650 mg Q6H PRN PO MILD PAIN (1-3) 06/21/25 13:30 06/21/25 13:12 DC Acetaminophen (TYLenol 325MG TAB) 650 mg Q6H PRN PO TEMPERATURE GREATER THAN 101.5 06/21/25 13:30 07/21/25 13:29 Al Hydroxide/Mg Hydroxide (MAALox PLUS 30ML) 30 ml Q6H PRN PO INDIGESTION 06/21/25 13:30 07/21/25 13:29 Albuterol Sulfate (Proventil 0.083% 2.5mg/3ml) 2.5 mg [id number] PRN IH RESPIRATORY SYMPTOMS 06/21/25 13:30 07/21/25 13:29 Ceftriaxone Sodium 2 gm/ Sodium Chloride 100 ml @ 200 mls/hr Q24H IV 06/21/25 13:30 06/21/25 13:20 DC Ceftriaxone Sodium (Rocephin 2gm Inj) 2 gm Q24H IVPB 06/22/25 13:00 07/02/25 12:59 Dextrose (D50w) 50 ml AD PRN IV HYPOGLYCEMIA PROTOCOL 06/21/25 13:00 07/21/25 12:59 Diphenhydramine HCl (BENAdryl INJ) 25 mg Q6H PRN IV SEVERE ITCHING/RASH 06/21/25 13:30 07/21/25 13:29 Famotidine (Pepcid 20mg Vial) 20 mg BID PRN IV NAUSEA/VOMITING 06/21/25 13:30 06/21/25 13:12 DC Famotidine (Pepcid 20mg Vial) 20 mg Q24H IV 06/21/25 21:00 07/21/25 20:59 06/21/25 20:22 20 MG Glucagon (Glucagon 1mg Kit) 1 mg AD PRN IM HYPOGLYCEMIA PROTOCOL 06/21/25 13:00 07/21/25 12:59 Guaifenesin/ Dextromethorphan (RobiTUSSin DM 200/20MG 10ML) 10 ml Q4H PRN PO COUGH 06/21/25 13:30 07/21/25 13:29 Heparin Sodium (Porcine) (HEParin 5,000 UNIT VIAL) 5,000 unit BID SQ 06/21/25 21:00 07/21/25 20:59 06/22/25 08:38 5,000 UNIT Hydralazine HCl (APRESOLine 20MG INJ) 10 mg Q6H PRN IV For:SBP above 160;DBP above 90 06/21/25 13:30 07/21/25 13:29 Insulin Human Regular (humuLIN R 100 UNIT/ML 3ML) INSULIN SLIDING SCAL... ACHS SQ 06/21/25 16:30 07/21/25 16:29 Ketorolac Tromethamine (toRADol) 15 mg Q8H PRN IV MODERATE PAIN (4-6) 06/21/25 13:30 06/26/25 13:29 Lactated Ringer's 1,000 ml @ 50 mls/hr Q20H IV 06/21/25 13:30 07/21/25 13:29 06/22/25 10:25 50 MLS/HR Lactulose (Constulose 20gm/ 30ml Udcup) 20 gm BID PRN PO CONSTIPATION 06/21/25 13:30 07/21/25 13:29 Magnesium Sulfate 50 ml @ 0 mls/hr PROTOCOL PRN IV other 06/21/25 13:00 07/21/25 12:59 Morphine Sulfate (morPHINE 2MG SYG) 1 mg Q4H PRN IVP SEVERE PAIN (7-10) 06/21/25 13:30 06/28/25 13:29 06/21/25 18:52 1 MG Nitroglycerin (Nitrostat) 0.4 mg PROTOCOL PRN SL CHEST PAIN 06/21/25 13:30 07/21/25 13:29 Ondansetron HCl (zoFRAN 4MG INJ) 4 mg Q6H PRN IV NAUSEA/VOMITING 06/21/25 13:30 07/21/25 13:29 06/22/25 01:59 4 MG Potassium Chloride 100 ml @ 50 mls/hr PROTOCOL IV 06/22/25 08:00 06/22/25 07:53 DC Potassium Chloride 100 ml @ 50 mls/hr PROTOCOL IV 06/22/25 12:00 06/22/25 07:58 DC Potassium Chloride 100 ml @ 100 mls/hr AD PRN IV POTASSIUM PROTOCOL 06/21/25 13:00 07/21/25 12:59 Potassium Chloride (K-Dur/Klor-Con 20meq) 20 meq AD PRN PO POTASSIUM PROTOCOL 06/21/25 13:00 07/21/25 12:59 Potassium Chloride (KCl 10% Elixir 20meq/15ml) 20 meq AD PRN PO POTASSIUM PROTOCOL 06/21/25 13:00 07/21/25 12:59 Zolpidem Tartrate (AmbIEN) 5 mg HS PRN PO INSOMNIA 06/21/25 13:30 07/21/25 13:29 DIAGNOSTICS / RADIOLOGY: [ ] ASSESSMENT: [ Acute hypoxic respiratory failure POA Large ascites as CT abdomen/pelvis POA Omental caking peritoneal carcinoma per CT abdomen/pelvis POA Ovarian cancer POA Bilateral adrenal masses per CT abdomen/pelvis POA Large to moderate pleural effusions per CT abdomen/pelvis POA S/p thoracentesis 06/22/2025 600 mL was removed by IR Acute complicated cystitis POA Intractable nausea and vomiting POA Elevated troponin 83 POA Patient currently on hospice POA Multifactorial anemia POA ] PLAN: [ Care was explained to the patient and family members/ at the bedside. Patient underwent IR thoracentesis left lung and 600 mL of fluids was removed. Nurse practitioner was also able to talk to the IR tech regards a possibly removing fluids from the left lung which will be set up for tomorrow morning. Patient will undergo paracentesis today in cardiac cath lab radiology technologist and placement of [place] catheter for ascites. Afterwards patient will be discharged home with hospice. Admit patient to medical-surgical floor Urinalysis positive for leukocytosis Place patient on Rocephin 2 g daily LR at 50 mL per RN Heparin prophylaxis 5000 subQ b.i.d. Urine culture pending A.m. labs IR paracentesis IR thoracentesis IR for Hill catheter placement Case management consulted for home hospice Chest x-ray pending CT abdomen/pelvis showed large ascites with omental caking peritoneal carcinoma. Bilateral adrenal masses, large to moderate left pleural effusions Home medications reconciled by FIELD LABORATORY OPERATOR 06/22/2025] ATTESTATION BY PHYSICIAN I have seen and examined the patient. I reviewed the documentation, medical decision making, and treatment plan as noted by the mid-level provider above. I agree with the findings and plan of care. Bella Palmer MD, KATARZYNA B CRYSTALLOGRAPHY TEACHER Jun 22, 2025 13:17
--- NOTE | 2025-06-22 15:31 | HMCIMG ---
ULTRASOUND-GUIDED THORACENTESIS: Looseleaf Binder Coverer: Dr. Barb Baumann and Dr. Tana Jarquin After obtaining informed consent, the skin overlying the patient's left posterior hemithorax was prepped and draped in a sterile manner. Local anesthesia was provided using 2% buffered lidocaine. Using Ultrasound guidance, A 5-sinhala Prematics catheter was advanced through the skin and into the left pleural cavity. Approximately 700 cc of clear fluid removed and sent to the laboratory. The catheter was then removed and the site cleaned and dressed. No immediate complications. The patient tolerated the procedure well. Impression: Left sided ultrasound guided thoracentesis with drainage of 700 mL of fluid.
--- NOTE | 2025-06-22 15:33 | HMCIMG ---
CHEST two-view inspiratory expiratory AP radiograph REASON: POST LT THORACENTESIS COMPARISON: None. FINDINGS: Single view of the chest was obtained. There is a large left-sided pneumothorax post thoracentesis. The O2 saturation appears to be in the high 90s patient is not having respiratory difficulty. The remaining lungs are clear.. Heart size is normal. There is no pulmonary vascular congestion. There is a right-sided Port-A-Cath with tip in superior vena cava. Mediastinum and bony thorax appear unremarkable. IMPRESSION: 1. 50% pneumothorax is may be secondary to trapped lung with no respiratory difficulty. I would recommend a follow-up radiograph..
[2025-06-22] MEDS ORDERED: LIDOCAINE HCL 1% MDV 50ML VIAL ONE (15:36)
[2025-06-22] MEDS ORDERED: HEParin-NS 1,000 UNIT/500 ML 500 ML IV ONE (15:37)
--- NOTE | 2025-06-22 15:46 | NUR ---
Per Kaitlin at [facility], they are pending response from the Auth dept at [facility] for re acceptance. Will update when response given
[2025-06-22] MEDS ORDERED: IODIXANOL 320 MG/ML 100 ML VIAL ONE (15:47)
[2025-06-23] VITALS: BP 113/73; PULSE 89; RESP 20; TEMP 97.7
[2025-06-23 04:00] VITALS: BP 118/79; PULSE 90; RESP 20; TEMP 97.8
[2025-06-23 06:16] LABS: IMMATURE GRANULOCYTE ABSOLUTE 0.02 K/uL (0-1); NUCLEATED RED BLOOD CELLS 0.0 % (0.0-0.19); PLATELET COUNT (AUTO) 167 K/uL (130-400); RED BLOOD CELL COUNT(AUTO) 3.01 MIL/uL (4.00-5.50); RED CELL DISTRIBUTION WIDTH 17.7 % (11.0-15.5); WHITE BLOOD COUNT (AUTO) 3.7 K/uL (4.8-10.8)
[2025-06-23 06:37] LABS: ASPARTATE AMINOTRANSFERASE 24.0 U/L (10-37); CREATININE 0.7 mg/dL (0.5-1.0); GLOMERULAR FILTR. RATE CALC 100.0 mL/min (>90); GLUCOSE,RANDOM 74.0 mg/dL (70-105); SODIUM SERUM 142.0 mmol/L (136-145); TOTAL PROTEIN, SERUM 5.2 g/dL (6.0-8.3); UREA NITROGEN, BLOOD 39.0 mg/dL (7-18)
[2025-06-23 06:53] VITALS: PULSE 78; RESP 18; O2SAT 98
--- NOTE | 2025-06-23 07:20 | HMCIMG ---
EXAM: CR Chest, 1 views. CLINICAL HISTORY: Cough. COMPARISON: None provided. FINDINGS: There is a port is noted with distal tip in right atrium. Basal infiltrates are noted in right lower zone. Left sided pneumothorax is noted. The cardiomediastinal silhouette is within normal limits. No acute osseous abnormality. IMPRESSION: Basal infiltrates are noted in right lower zone. Left sided pneumothorax is noted. As compared to previous scan radiological appearances almost same. /[place]
[2025-06-23] MEDS: PoTASSium chl 10% ELIXIR 20MEQ 20 MEQ/15 ML UDCUP PO PRN (07:34)
[2025-06-23 08:00] VITALS: BP 117/75; PULSE 90; RESP 18; TEMP 98; O2SAT 97
--- NOTE | 2025-06-23 08:10 | NUR ---
RE: THORACENTESIS BY IR DR HOUSER NOTIFIED FOR PROCEDURE REQUEST AND CANCELLED PROCEDURE. PATIENT HAS A LT PNUEMOTHOAX FROM PREVIOUS LT SIDED THORACENTESIS DONE YESTERDAY. RECOMMENDS TO WAIT ON RT SIDED THORACENTESIS UNTIL LT SIDED THORACENTESIS IS RESOLVED. PROCEDURE OUTCOME REPORTED TO ANA M CENTENO.
--- NOTE | 2025-06-23 10:18 | NUR ---
DCP: [facility] [phone] Per Kaitlin, they have recd auth and pt is accepted back to their services.
[2025-06-23 12:00] VITALS: BP 124/77; PULSE 92; RESP 16; TEMP 98
--- NOTE | 2025-06-23 13:20 | NUR ---
ICU Skin Assessment: Patient assessed by wound healing team. Patient with no wounds or skin breakdown noted. Assessment and recommendations provided to primary nurse. Education provided. Addendum: 06/23/25 at 1600 by KAY FAY RN RN/JOHNY Amended: Links added.
--- NOTE | 2025-06-23 14:44 | DS ---
Discharge Summary Hospital Course Summary: [06/21 Patient is 59 years old female with a past medical history of per ovarian cancer stage IV, peritoneal carcinoma, ascites, pleural effusions on hospice from home who came to emergency department with a complaint of shortness of breaths [place], nausea, vomiting with some dark emesis. During evaluation raquel domingo's troponin has been elevated at 83. Occult blood was negative. No more nausea or vomiting. Nurse practitioner was able to talk to the patient and her at the bedside regarding the hospice continuation. As per patient and they understand that no scopes probably she will be able to survive so they would only like to proceed with shortness of breaths. CT abdomen/pelvis showed large ascites with omental caking peritoneal carcinoma, bilateral adrenal masses and large to moderate left pleural effusion. We will consult IR for paracentesis and thoracentesis and possibly placement of the pigtail since patient would like to go home tomorrow after the fluid removal. They denied to consult any consultants like GI for dark emesis or oncologist Dr. Samson outpatient for cancer since they know they not going to proceed with anything and they are not candidate for any treatment. Patient's urine was positive for leukocytosis we ordered urine culture and place patient on Rocephin 2 g daily. Most recent vital signs temperature 97.2 pulse 84 respiration 18 blood pressure 128/82 patient is on room air satting 97%. WBC 3.0 hemoglobin 11.2 hematocrit 35.5 platelets 227 UA positive for leukocytosis. Stool occult negative. Sodium 143 potassium 3.9 CO2 30 BUN 44 creatinine 0.9 GFR 74 glucose 100 bilirubin 1.6 AST 36 ALT 28 troponin 83 albumin 2.3 lipase 16. Patient will be admitted under hospitalist care for further evaluation/recommendation. The plan is IR paracentesis and thoracentesis with possible PEG tube placement and then discharged home with hospice. Case management was consulted to pelvis with disposition. 06/22 patient was seen by nurse practitioner and physician during rounding in room 405. Care works explained to the patient and family members/ at the bedside. Patient underwent IR thoracentesis left lung and 600 mL of fluids was removed. Nurse practitioner was also able to talk to the IR tech regards a possibly removing fluids from the left lung which will be set up for tomorrow morning. Patient will undergo paracentesis today in computer lab assistant and placement of Ox[place] catheter for ascites. Afterwards patient will be discharged home with hospice. Continue to monitor patient in the meantime. A.m. labs ] 06/23 s/p oxana catheter placement. patient has been accepted to home hospice. she is resting comfortably. We will discharge today. meds as per med rec Assessment/Plan: ASSESSMENT: [ Acute hypoxic respiratory failure POA Large ascites as CT abdomen/pelvis POA Omental caking peritoneal carcinoma per CT abdomen/pelvis POA Ovarian cancer POA Bilateral adrenal masses per CT abdomen/pelvis POA Large to moderate pleural effusions per CT abdomen/pelvis POA S/p thoracentesis 06/22/2025 600 mL was removed by IR Acute complicated cystitis POA Intractable nausea and vomiting POA Elevated troponin 83 POA Patient currently on hospice POA Multifactorial anemia POA ] PLAN: [ Care was explained to the patient and family members/ at the bedside. Patient underwent IR thoracentesis left lung and 600 mL of fluids was removed. Nurse practitioner was also able to talk to the IR tech regards a possibly removing fluids from the left lung which will be set up for tomorrow morning. Patient will undergo paracentesis today in computer lab assistant and placement of [place] catheter for ascites. Afterwards patient will be discharged home with hospice. Admit patient to medical-surgical floor Urinalysis positive for leukocytosis Place patient on Rocephin 2 g daily LR at 50 mL per RN Heparin prophylaxis 5000 subQ b.i.d. Urine culture pending A.m. labs IR paracentesis IR thoracentesis IR for [place] catheter placement Case management consulted for home hospice Chest x-ray pending CT abdomen/pelvis showed large ascites with omental caking peritoneal carcinoma. Bilateral adrenal masses, large to moderate left pleural effusions Home medications reconciled by CONTINUOUS IMPROVEMENT ENGINEER 06/22/2025] Home Medications: Reported Medications Pantoprazole Sodium (Pantoprazole Sodium) 40 Mg Tablet., 40 MG PO DAILY, TAB 06/21/25 Apixaban (Eliquis) 5 Mg Tablet, 10 MG PO BID, TAB 06/21/25 Time spent arranging discharge: 31-60 minutes KELLY ELKINS IV, MD Jun 23, 2025 14:44
--- NOTE | 2025-06-23 16:19 | NUR ---
Report called in to Korina VIRAMONTES of [facility]
--- NOTE | 2025-06-23 16:23 | NUR ---
Report called into [facility]
--- NOTE | 2025-06-23 17:19 | NUR ---
PT sitting in bed w/ eyes open 0 s/s of distress noted, A&Ox4, able to make needs known. Discharge instructions given to PT and Jaime verbally and written in [place] language. PT & Jaime verbally acknowledged understanding. IV removed intact w/o complications. PT escorted to ambulance via stretcher by EMT x2 w/o complications.
--- NOTE | 2025-06-24 11:04 | CCATH ---
This is a 59-year-old female for intractable ascites for placement of a left-sided [place] catheter. The left side of the abdomen was prepped and draped in the usual sterile technique. Xylocaine 1% was used for local anesthetic. Under ultrasound guidance, left lateral mid abdominal wall was accessed to a pocket of ascites, which was exchanged over an angiographic wire. A tunnel approximately 6 cm in length below from the access site was performed. A [place]uyler pleural drainage system was then tunneled and deployed into the abdomen. Under fluoroscopy, it appears to be in satisfactory position. The access site was closed with 3-0 Vicryl and tunnel catheter access site was secured with 3-0 silk suture. The patient tolerated the procedure well. IMPRESSION: Placement of percutaneous ultrasound fluoroscopy guided [place] catheter, which appears to be in satisfactory position. TID: [id number] RECEIPT: [id number]
--- NOTE | 2025-06-25 14:22 | HMCIMG ---
Ascites SCAN History: Abdominal distention for placement of a [place] catheter FINDINGS: Ascites was localized in the mid abdomen lateral aspect for placement of a [place] catheter. IMPRESSION: Ascites localization for placement of [place] catheter. See the procedure notes.
== END 2025-06-23 17:19 | disposition hospice, home (50) | DRG 189 ==
LOC: EDH 08:26 → EDHIP 13:01 → 4BH 18:25
PROVIDERS: ADMIT Internal Medicine; ATTEND Internal Medicine
PROC: 0W9B3ZX Drainage of Left Pleural Cavity, Percutaneous Approach, Diagnostic (ICD-10-PCS; principal; 2025-06-22)
PROC: 0WHG33Z Insertion of Infusion Device into Peritoneal Cavity, Percutaneous Approach (ICD-10-PCS; 2025-06-22)
DX: J96.01 Acute respiratory failure with hypoxia (principal); R18.8 Other ascites; N30.00 Acute cystitis without hematuria; C48.2 Malignant neoplasm of peritoneum, unspecified; J91.8 Pleural effusion in other conditions classified elsewhere; E27.9 Disorder of adrenal gland, unspecified; D64.9 Anemia, unspecified; Z85.43 Personal history of malignant neoplasm of ovary; Z51.5 Encounter for palliative care
CPT/HCPCS: 32555; 36415; 49418; 71045; 74176; 75989; 76942; 80048; 80053; 80076; 81001; 82140; 82150; 82270; 82550; 82948; 83036; 83605; 83690; 83735; 83880; 84145; 84484; 85025; 85610; 85730; 87040; 87086; 87186; 93005; 94664; 96361; 96374; 96375; 96376; 99291; C1729; C1769; G0378; J0696; J1644; J1885; J2270; J2405; J2470; J3480; J3490; J7030; J7120; Q9967; A7048